=== PATIENT | female | born 1935 | race Hispanic/Latino ===

== ENCOUNTER 2017-02-01 12:26 | Outpatient (CLI) | payer MEDICARE ==
--- NOTE | 2017-02-01 13:55 | Cat Scan Report ---
CT paranasal sinuses without contrast: Chronic sinusitis. Transverse images were obtained through the sinuses with coronal and sagittal 2-D reconstructed images. The sinuses are clear. The OMCs are patent bilaterally. The nasal airways are unremarkable with nondisplaced septum. No bony abnormality identified. Impression: Normal exam.
== END 2017-02-01 12:27 | disposition home or self-care (01) ==
LOC: CT 12:26
PROVIDERS: ATTEND Otolaryngology
DX: J32.9 Chronic sinusitis, unspecified (principal); J31.0 Chronic rhinitis
CPT/HCPCS: 70486

== ENCOUNTER 2017-05-25 09:11 | Outpatient (CLI) | payer MEDICARE ==
[2017-05-25 09:29] LABS: Hematocrit 42.6 % (30.3-42.9); Hemoglobin 14.8 gm/dl (10.1-14.3); Mean Corpuscular HGB Conc 35 % (30-34); Mean Corpuscular Hemoglobin 32 pg (28-32); Mean Corpuscular Volume 92 fl (79-97); Platelet Count 285 K/mm3 (140-440); Red Blood Count 4.65 M/mm3 (3.65-5.03)
[2017-05-25 10:03] LABS: Albumin 4.3 g/dL (3.9-5); Calcium 9.5 mg/dL (8.4-10.2)
[2017-05-25 11:00] LABS: Free T4 (Free Thyroxine) 1.29 ng/dL (0.76-1.46)
== END 2017-05-25 09:12 | disposition home or self-care (01) ==
LOC: LAB 09:11
PROVIDERS: ATTEND Specialist
DX: G60.9 Hereditary and idiopathic neuropathy, unspecified (principal); R79.89 Other specified abnormal findings of blood chemistry
CPT/HCPCS: 36415; 80053; 82607; 82747; 83036; 84439; 84443; 85027